=== PATIENT | male | born 1990 ===

== ENCOUNTER 2023-11-09 10:11 | Outpatient (CLI) | payer MEDICARE, SELFPAY ==
--- NOTE | 2023-11-09 06:00 | DI.RAD_ITS ---
Exam(s) XR PAIN CLINIC LUMBAR SP 2V EXAM: XR PAIN CLINIC LUMBAR SP 2V CLINICAL HISTORY: DX: Lumbar Radiculopathy TECHNIQUE: 2D and realtime digital imaging was performed. CONTRAST MATERIAL: Refer to procedure report. COMPARISON: No exams were available for comparison FINDINGS: Fluoroscopy was provided for Dr. Denis during the performance of a lumbar epidural steroid injection. Please refer to the procedure report for complete details. Ka,r=4.5 mGy IMPRESSION:
[2023-11-09 10:30] VITALS: BP 111/75; PULSE 91; RESP 20; TEMP 37; O2SAT 99
--- NOTE | 2023-11-09 11:03 | PDOC.PAIN ---
Date of service: 11/09/23 Time of Service: 11:03 Pain Managment Procedure Note Procedure Note Procedure Note: PROCEDURE NOTE LUMBAR EPIDURAL STEROID INJECTION Date of Service: November 09, 2023 Patient:Laz ARNOLD? Provider: Glenn Alejo DO, MPH Laz FALK has been referred to the [facility] for a lumbar epidural steroid injection. Pre-operative diagnosis: Lumbosacral Radiculopathy Post-operative diagnosis: Same Pre-Procedure Pain: VAS= 6 /10 Comments: He was directly referred in by Neurosurgery at . I did review his symptoms and MRI findings. This does correlate with a left L5 +/- left S1 radiculopathy. Laz was interviewed and the medical record was reviewed.? There were no medical, pharmacologic, radiographic or other structural contraindications to attempting fluoroscopically guided Lumbar epidural steroid injection.? Risks, potential side effects, indications, and potential benefits of the procedure were reviewed with Mac.? Questions and concerns were addressed.? After it was clear that Laz was fully informed about the procedure, the printed consent form was signed by the patient and myself.? Mac was placed in the prone position on the fluoroscopy table and automated blood pressure cuff and pulse oximeter applied. The skin entry point for entering/approaching the epidural space for the lumbar epidural steroid injection was marked. Following thorough chlorhexadine preparation of the skin and draping and 1% lidocaine infiltration of the skin entry point and subcutaneous tissues, an 18 gauge Touhy needle was placed and advanced under fluoroscopic guidance and with loss of resistance technique into the L5-S1 epidural space. Needle tip placement and depth were aided and confirmed by fluoroscopy. There was no paresthesia or return of blood or CSF through the needle. 1 mls of Omnipaque 240 was injected with clear epidural spread confirmed with fluoroscopy. 80 mg of Depo-Medrol was? injected. This was followed by 1 ml of preservative-free normal saline to flush the steroid out of the needle. There was no unusual discomfort expressed by Laz. The needle was withdrawn without difficulty. (49 mls of Omnipaque was wasted) Mac was observed and was without hemodynamic, neurologic, or allergic reactions.? Fluoroscopic images were digitally archived. Laz's vital signs were stable throughout the procedure and were as recorded in nursing records. Follow up plans and appointments were discussed with Mac. Post procedure instruction was given as documented in nursing records and having met discharge criteria Mac was discharged from the [facility]. COMMENTS: No apparent complications. Post-procedure pain: VAS= 0/10. Mac to contact [facility] as needed. If at least 50% improvement in pain and/or function for at least 3 months is achieved, this procedure can be repeated. I personally performed this entire procedure. GLENN ALEJO DO, MPH ABPMR-subspecialty board certification in Pain Medicine [facility]
[2023-11-09 11:10] VITALS: BP 109/77; PULSE 95; RESP 22; O2SAT 99
[2023-11-09] MEDS: methylPREDNISolone ACETATE 80 MG/ML VIAL IJ (11:11)
[2023-11-09] MEDS: Omnipaque 240 MG/ML 50 ML BTL IJ (11:11)
== END 2023-11-09 10:12 | disposition home or self-care (01) ==
LOC: PC 10:14
PROVIDERS: Visit Provider Preventive Medicine Occupational Medicine
DX: M54.50 Low back pain, unspecified (principal); M54.17 Radiculopathy, lumbosacral region
CPT/HCPCS: 123; 62323; 72100; 00123; J1040; Q9967